=== PATIENT | female | born 1980 | race Caucasian/White ===

== ENCOUNTER → 2019-05-15 | Outpatient (CLI) | payer BC ==
[2019-05-15 21:20] LABS: RAPID PLASMA REAGIN NONREACTIVE (NR)
== END | disposition home or self-care (01) ==
LOC: LAB 15:17
DX: Z11.3 Encounter for screening for infections with a predominantly sexual mode of transmission (principal)
CPT/HCPCS: 86480; 86592; 86708; 86787; 87591